=== PATIENT | female | born 1950 | race African-American/Black ===

== ENCOUNTER → 2016-11-24 | Outpatient (CLI) | payer MEDICARE | END | disposition home or self-care (01) | LOC: PCVCIMAG 10:19 | PROVIDERS: ATTEND Nuclear Medicine Nuclear Cardiology | DX: I70.213 Atherosclerosis of native arteries of extremities with intermittent claudication, bilateral legs (principal); E11.9 Type 2 diabetes mellitus without complications | CPT/HCPCS: 93925 ==